=== PATIENT | female | born 2000 | race Caucasian/White ===

== ENCOUNTER 2023-10-11 07:40 | Day surgery (SDC) | payer OTHER ==
[~2023-10-11] VITALS: Ht 149.9 cm; Wt 59.0 kg
[2023-10-11] MEDS ORDERED: MIDAZOLAM INJ 2MG/2ML VIAL As Ordered ONE (08:19)
[2023-10-11] MEDS ORDERED: HYDROmorphone HCL 2MG/ML 1ML VIAL As Ordered ONE (08:19)
[2023-10-11] MEDS ORDERED: fentaNYL 100 MCG/2 ML INJECTION As Ordered ONE (08:20)
[2023-10-11] MEDS ORDERED: propofoL 200 MG/20 ML VIAL As Ordered ONE (08:20)
[2023-10-11] MEDS ORDERED: ONDANSETRON 4MG 2ML VIAL As Ordered ONE (08:20)
[2023-10-11] MEDS ORDERED: LIDOCAINE 2% 100MG/5ML SDV (FOR ANES.) As Ordered ONE (08:20)
[2023-10-11] MEDS ORDERED: KETOROLAC 60MG 2ML VIAL As Ordered ONE (08:20)
[2023-10-11] MEDS ORDERED: GLYCOPYRROLATE INJ 0.2 MG/ML 2 ML VIAL As Ordered ONE (08:21)
[2023-10-11] MEDS: ROPIvacaine 0.5% 30ML VIAL PN ONE (09:13)
[2023-10-11] MEDS: MIDAZOLAM INJ 2MG/2ML VIAL IV PRN (09:23)
[2023-10-11] MEDS: fentaNYL 100 MCG/2 ML INJECTION IV PRN (09:23)
[2023-10-11] MEDS ORDERED: ROCURONIUM BROMIDE 50MG/5ML VIAL As Ordered ONE (10:09)
[2023-10-11] MEDS ORDERED: EPINEPHrine 1MG/ML INJ 30ML MD-VIAL As Ordered ONE (10:57)
[2023-10-11] MEDS ORDERED: TRANEXAMIC ACID 100 MG/ML 10ML VIAL As Ordered ONE (10:57)
[2023-10-11] MEDS: ceFAZolin SOD 2 GM in IV 1 EA IV ONE (12:04)
[2023-10-11] MEDS: TRANEXAMIC ACID 100 MG/ML 10ML VIAL IV ONE (12:24)
[2023-10-11] MEDS ORDERED: ACETAMINOPHEN 1000MG 100ML IV BAG As Ordered ONE (13:29)
[2023-10-11] MEDS ORDERED: ePHEDrine SULFATE 25 MG/5 ML(5MG/ML) SYRINGE As Ordered ONE (13:31)
[2023-10-11] MEDS ORDERED: SUGAMMADEX SODIUM 500 MG/5 ML VIAL (BRIDION) As Ordered ONE (13:32)
[2023-10-11] MEDS ORDERED: LR 1,000 ML IV SCH (13:55)
[2023-10-11] MEDS ORDERED: ONDANSETRON 4MG 2ML VIAL IV PRN (13:55)
[2023-10-11] MEDS ORDERED: fentaNYL 100 MCG/2 ML INJECTION IV PRN (13:55)
[2023-10-11] MEDS ORDERED: oxyCODONE 5MG TAB PO PRN (13:55)
[2023-10-11] MEDS ORDERED: HYDROMORPHONE HCL 0.5 MG/ 0.5 ML SYRINGE IV PRN (13:55)
[2023-10-11 17:30] VITALS: BP 114/67; TEMP 98.2; O2SAT 98
== END 2023-10-11 17:40 | disposition home or self-care (01) ==
LOC: M SDC 07:40
PROVIDERS: ATTEND Student in an Organized Health Care Education/Training Program
DX: S83.512D Sprain of anterior cruciate ligament of left knee, subsequent encounter (principal); S83.232D Complex tear of medial meniscus, current injury, left knee, subsequent encounter; X50.1XXD Overexertion from prolonged static or awkward postures, subsequent encounter
CPT/HCPCS: 29888; 76000; 81025; C1713; C9290; J0131; J0171; J0665; J0690; J1100; J1170; J1885; J2250; J2405; J2795; J3010